=== PATIENT | male | born 1950 | race Hispanic/Latino ===

== ENCOUNTER 2022-06-23 20:01 | Observation (INO) | payer MEDICARE ==
[~2022-06-23] VITALS: Ht 160 cm; Wt 65.1 kg
[2022-06-23 20:25] LABS: BASOPHILS % (AUTO) 0.7 % (0.0-5.0); EOSINOPHILS % (AUTO) 1.7 % (0.0-8.0); LYMPHOCYTES % (AUTO) 10.6 % (21.0-51.0); MEAN CORPUSCULAR HEMOGLOBIN 29.7 pg (27.0-33.0); MEAN CORPUSCULAR HGB CONC 33.6 g/dL (32.0-36.0); MEAN CORPUSCULAR VOLUME 88.3 fL (79-99); MONOCYTES % (AUTO) 3.5 % (3.0-13.0); NEUTROPHILS % (AUTO) 83.3 % (40.0-77.0); PLATELET COUNT (AUTO) 289 K/uL (130-400); RED CELL DISTRIBUTION WIDTH 13.6 % (11.0-15.5); WHITE BLOOD COUNT (AUTO) 12.6 K/uL (4.8-10.8)
[2022-06-23] MEDS ORDERED: ASPIRIN 81MG CHEW TAB PO ONE (20:30)
[2022-06-23 20:31] LABS: APPEARANCE,URINE CLEAR (CLEAR); BILIRUBIN,URINE NEGATIVE (NEGATIVE); COLOR,URINE LIGHT-YELLOW (YELLOW); GLUCOSE, URINE (UA) NEGATIVE (NEGATIVE); KETONES,URINE NEGATIVE (NEGATIVE); LEUKOCYTE ESTERASE ,URINE NEGATIVE Leu/uL (NEGATIVE); NITRATE,URINE NEGATIVE (NEGATIVE); OCCULT BLOOD,URINE NEGATIVE (NEGATIVE); PROTEIN,URINE NEGATIVE (NEGATIVE); UROBILINOGEN,URINE 0.2 mg/dL (0.2-1.0)
[2022-06-23 20:40] LABS: CREATININE 1.1 mg/dL (0.5-1.5); POTASSIUM 3.9 mmol/L (3.5-5.1)
[2022-06-23 20:49] LABS: ALBUMIN 4.6 g/dL (3.5-5.0); TOTAL PROTEIN, SERUM 8.5 g/dL (6.0-8.3)
[2022-06-23] MEDS ORDERED: ACETAMINOPHEN 325 MG TAB PO PRN (22:30)
[2022-06-23] MEDS ORDERED: ONDANSETRON 4MG INJ IVP PRN (22:30)
[2022-06-23] MEDS ORDERED: ACETAMINOPHEN 325 MG TAB ONE (23:04)
[2022-06-23] MEDS: 0.9%NACL 1000ML 1,000 ML IV SCH (23:12)
[2022-06-23] MEDS ORDERED: LEVO75CA5 PO (23:57)
[2022-06-23] MEDS ORDERED: METF-444 PO (23:57)
[2022-06-23] MEDS ORDERED: LISI5TAB21 PO (23:57)
[2022-06-23] MEDS ORDERED: OXYC-43 PO (23:57)
[2022-06-23] MEDS ORDERED: TIZA-194 PO (23:57)
[2022-06-23] MEDS ORDERED: ATOR40TA71 PO (23:57)
[2022-06-23] MEDS ORDERED: GLIP-162 PO (23:57)
[2022-06-23] MEDS ORDERED: GABA-529 PO (23:57)
[2022-06-24] MEDS ORDERED: LACTULOSE 20 GM/30 ML UDCUP PO PRN
[2022-06-24] MEDS ORDERED: DiphenhydrAMINE HCL 50 MG/ML VIAL IV PRN
[2022-06-24] MEDS ORDERED: ACETAMINOPHEN 325 MG TAB PO PRN
[2022-06-24] MEDS ORDERED: MAG/ALUM/SIMETH 30 ML UDCUP PO PRN
[2022-06-24] MEDS ORDERED: DIPHENHYDRAMINE HCL 25 MG CAPSULE PO PRN
[2022-06-24] MEDS ORDERED: ONDANSETRON 4MG INJ IV PRN
[2022-06-24] MEDS ORDERED: POTASSIUM CHLORIDE 10% ELIXIR 20 MEQ/15 ML UDCUP PO PRN (00:30)
[2022-06-24] MEDS ORDERED: DEXTROSE 50%-WATER 50 ML DISP.SYRIN IV PRN (00:30)
[2022-06-24] MEDS ORDERED: KCL 20 MEQ ERTAB PO PRN (00:30)
[2022-06-24] MEDS ORDERED: LIDOCAINE HCL-MPF 1% 2ML VIAL IV PRN ×2 (00:30)
[2022-06-24] MEDS ORDERED: POTASSIUM CHLORIDE 20MEQ/100ML 100 ML IV PRN ×2 (00:30)
[2022-06-24] MEDS ORDERED: GLUCAGON 1MG KIT 1 MG ML IM PRN (00:30)
[2022-06-24 03:20] VITALS: BP 161/82
[2022-06-24] MEDS: LEVOTHYROXINE 75 MCG TABLET PO SCH (03:52)
[2022-06-24] MEDS: INSULIN HUMULIN R 100 UNIT/ML 3ML SQ SCH ×4 (06:20→20:11)
[2022-06-24 07:30] VITALS: BP 150/82
[2022-06-24] MEDS: GLIPIZIDE XL 5MG TAB PO SCH (09:00)
[2022-06-24] MEDS: GABAPENTIN 100 MG CAPSULE PO SCH ×3 (09:18→20:34)
[2022-06-24] MEDS: ASPIRIN 325MG EC TAB PO SCH (09:19)
[2022-06-24] MEDS: LISINOPRIL 5 MG TABLET PO SCH ×2 (09:19→20:34)
[2022-06-24] MEDS: NITROGLYCERIN 1GM OINT 1 INCH/1GM TD SCH ×4 (09:19→20:08)
[2022-06-24] MEDS ORDERED: REGADENOSON 0.4 MG/5 ML PF SYG IVP SCH (10:00)
[2022-06-24 11:00] VITALS: BP 146/80
[2022-06-24] MEDS: 0.9%NACL 1000ML 1,000 ML IV SCH (11:50)
[2022-06-24 16:00] VITALS: BP 148/80
[2022-06-24 19:00] VITALS: BP 168/98
[2022-06-24] MEDS: OXYCODONE/ACETAMIN 5/325MG TAB PO PRN (20:34)
[2022-06-24] MEDS ORDERED: ATORVASTATIN 40 MG TABLET PO SCH (21:00)
[2022-06-25] VITALS: BP 121/68
[2022-06-25] MEDS: 0.9%NACL 1000ML 1,000 ML IV SCH (01:06)
[2022-06-25 04:00] VITALS: BP 136/76
[2022-06-25] MEDS: INSULIN HUMULIN R 100 UNIT/ML 3ML SQ SCH ×2 (05:55→10:33)
[2022-06-25] MEDS: LEVOTHYROXINE 75 MCG TABLET PO SCH (06:36)
[2022-06-25] MEDS: OXYCODONE/ACETAMIN 5/325MG TAB PO PRN (06:40)
[2022-06-25 07:56] VITALS: BP 124/73
[2022-06-25] MEDS: ASPIRIN 325MG EC TAB PO SCH (09:12)
[2022-06-25] MEDS: GLIPIZIDE XL 5MG TAB PO SCH (09:13)
[2022-06-25] MEDS: GABAPENTIN 100 MG CAPSULE PO SCH (09:13)
[2022-06-25] MEDS: LISINOPRIL 5 MG TABLET PO SCH (09:13)
[2022-06-25 11:11] VITALS: BP 123/57
[2022-06-25] MEDS ORDERED: NITROGLYCERIN 1GM OINT 1 INCH/1GM TD SCH (12:00)
== END 2022-06-25 15:30 | disposition home or self-care (01) ==
LOC: EDH 20:01 → EDHIP 22:15 → 4DH 06-24 02:58
PROVIDERS: ADMIT Internal Medicine; ATTEND Internal Medicine
DX: R07.89 Other chest pain (principal); M47.816 Spondylosis without myelopathy or radiculopathy, lumbar region; M48.061 Spinal stenosis, lumbar region without neurogenic claudication; S32.9XXA Fracture of unspecified parts of lumbosacral spine and pelvis, initial encounter for closed fracture; E11.42 Type 2 diabetes mellitus with diabetic polyneuropathy; E11.618 Type 2 diabetes mellitus with other diabetic arthropathy; E11.65 Type 2 diabetes mellitus with hyperglycemia; E78.00 Pure hypercholesterolemia, unspecified; F11.20 Opioid dependence, uncomplicated; I10 Essential (primary) hypertension; M51.16 Intervertebral disc disorders with radiculopathy, lumbar region; B35.1 Tinea unguium; E03.9 Hypothyroidism, unspecified; G89.4 Chronic pain syndrome; Z79.890 Hormone replacement therapy; Z68.26 Body mass index [BMI] 26.0-26.9, adult; Z79.82 Long term (current) use of aspirin
CPT/HCPCS: 96360; 99285; 82550 ×4; 84484 ×4; 80053; 85025; 85378; 81003; 36415 ×2; 71045; 70450; 93005 ×2; 96361 ×2; 83874 ×3; 82948 ×6; 93017; 78452; J7030; G0378 ×36; J2785; A9500 ×2; 96374

== ENCOUNTER → 2023-12-25 | Outpatient (CLI) | payer OTHER ==
[~2023-12-25] MED LIST: ATOR40TA71 PO; GABA-529 PO; GLIP-162 PO; LEVO75CA5 PO; LISI5TAB21 PO; METF-444 PO; OXYC-43 PO; TIZA-194 PO
== END | disposition home or self-care (01) ==
LOC: RAH 09:49
PROVIDERS: ATTEND Pain Medicine Interventional Pain Medicine
DX: M16.0 Bilateral primary osteoarthritis of hip (principal)
CPT/HCPCS: 73521